=== PATIENT | female | born 1960 | race Caucasian/White ===

== ENCOUNTER → 2018-03-04 | Outpatient (CLI) | payer OTHER ==
[~2018-03-04] MED LIST: ADULT LOW DOSE81 MG PO; CALCIUM 500 +1 EAC5; K-DUR 20 MEQ T20 MEQ PO; LEVOTHYROXIN0.025 MG
== END ==
LOC: M.CT 09:12
DX: Z13.6 Encounter for screening for cardiovascular disorders (principal)

== ENCOUNTER 2019-02-11 15:54 | Emergency (ER) | payer OTHER ==
[~2019-02-11] VITALS: Ht 160 cm; Wt 70.3 kg
[~2019-02-11 15:54] MED LIST changes: -LEVOTHYROXIN0.025 MG; +SYNTHROID50 MCG PO
[2019-02-11] MEDS ORDERED: METOPROLOL SUCC50 MG PO (16:04)
[2019-02-11] MEDS ORDERED: NORTRIPTYLINE H10 M2 PO (16:06)
[2019-02-11] MEDS ORDERED: SUDAFED 12 HOU120 MG PO (16:06)
[2019-02-11] MEDS ORDERED: ALLEGRA ALLERGY60 MG PO (16:06)
[2019-02-11] MEDS ORDERED: MAGNESIUM OXID200 MG PO (16:06)
[2019-02-11 16:27] LABS: URINE BILIRUBIN NEGATIVE (Negative); URINE BLOOD NEGATIVE (Negative); URINE CLARITY CLEAR; URINE COLOR STRAW; URINE GLUCOSE-RANDOM NEGATIVE (Negative); URINE KETONES NEGATIVE (Negative); URINE LEUKOCYTES-REFLEX NEGATIVE (Negative); URINE NITRITE-REFLEX NEGATIVE (Negative); URINE PROTEIN NEGATIVE (Negative); URINE UROBILINOGEN 0.2 E.U./dl (0.2-1.0)
[2019-02-11 16:32] LABS: ABSOLUTE EOSINOPHILS 0.1 thou/uL (0.0-0.7); ABSOLUTE LYMPHOCYTES 2.7 thou/uL (0.8-5.3); ABSOLUTE MONOCYTES 0.6 thou/uL (0.0-1.2); ABSOLUTE NEUTROPHILS 2.9 thou/uL (1.6-8.1); BASOPHILS 0.6 %; EOSINOPHILS 1.1 %; HEMATOCRIT 44.3 % (37.0-47.0); HEMOGLOBIN 15.2 gm/dL (12.0-15.0); LYMPHOCYTES 42.9 %; MCH 29.5 pg (26.0-34.0); MCHC 34.2 g/dL (28.0-37.0); MCV 86.3 fL (80.0-100.0); MPV 7.7 fl. (7.2-11.1); NUCLEATED RBCS 0 /100WBC; PLATELET COUNT* 309 thou/uL (150-400); POLYS 46.4 %; RBC 5.13 mil/uL (4.20-5.00); RDW-CV 13.1 % (10.5-14.5); WBC 6.3 thou/uL (4.0-11.0)
[2019-02-11 16:47] LABS: APTT 27.3 Seconds (25.0-31.3); INR 0.9; PROTIME 9.5 Seconds (9.20-11.50)
[2019-02-11 17:05] LABS: ANION GAP 10 mmol/L (7-16); BUN 11 mg/dL (7-18); CHLORIDE 103 mmol/L (98-107); CO2 29 mmol/L (21-32); CREATININE 1.1 mg/dL (0.6-1.3); GLUCOSE 126 mg/dL (70-99); POTASSIUM 3.2 mmol/L (3.5-5.1); SODIUM 142 mmol/L (136-145); TROPONIN-I LEVEL <0.06 ng/mL (<0.06)
[2019-02-11 17:17] LABS: ALKALINE PHOSPHATASE 82 U/L (46-116); NT-PRO BRAIN NAT PEPTIDE 115 pg/mL (<300); SGOT 23 U/L (15-37); SGPT 22 U/L (30-65); TOTAL BILIRUBIN 0.2 mg/dL (<0.1-1.0)
[2019-02-11 17:34] VITALS: BP 151/97
--- NOTE | 2019-02-12 15:12 | EKG ---
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 : 1960 Requested By: Srikanth Fitzpatrick Order Number: [id number] MD: Scott Bermeo Measurements Intervals [place] Rate: 87 P: 60 [place]: 125 QRS: 4 QRSD: 104 T: 33 QT: 367 QTc: 442 Interpretive Statements Sinus rhythm Borderline repolarization abnormality Baseline wander in lead(s) V6 Compared to ECG 10/17/2010 08:44:11 T-wave abnormality no longer present Possible ischemia no longer present Electronically Signed On 02-12-2019 15:12:06 CDT by Scott Bermeo [email or web address] <ELECTRONICALLY SIGNED> By: Scott Bermeo MD, FAC 02/12/19 1512 1603 1603 Scott Bermeo MD, [facility] /EPI
== END 2019-02-11 17:36 | disposition home or self-care (01) ==
LOC: M.ERS 15:54
PROVIDERS: Family Medicine
DX: I10 Essential (primary) hypertension (principal); Z88.8 Allergy status to other drugs, medicaments and biological substances

== ENCOUNTER 2019-02-14 08:05 | Emergency (ER) | payer OTHER ==
[~2019-02-14] VITALS: Ht 160 cm; Wt 70.3 kg
[~2019-02-14 08:05] MED LIST changes: +ALLEGRA ALLERGY60 MG PO; +MAGNESIUM OXID200 MG PO; +METOPROLOL SUCC50 MG PO; +NORTRIPTYLINE H10 M2 PO; +SUDAFED 12 HOU120 MG PO
[2019-02-14 09:03] LABS: ABSOLUTE LYMPHOCYTES 1.1 thou/uL (0.8-5.3); ABSOLUTE MONOCYTES 0.3 thou/uL (0.0-1.2); ABSOLUTE NEUTROPHILS 2.9 thou/uL (1.6-8.1); BASOPHILS 0.7 %; EOSINOPHILS 0.5 %; HEMATOCRIT 44.4 % (37.0-47.0); HEMOGLOBIN 15.4 gm/dL (12.0-15.0); LYMPHOCYTES 25.5 %; MCH 29.3 pg (26.0-34.0); MCHC 34.6 g/dL (28.0-37.0); MCV 84.6 fL (80.0-100.0); MONOCYTES 6.9 %; MPV 7.7 fl. (7.2-11.1); NUCLEATED RBCS 0 /100WBC; PLATELET COUNT* 291 thou/uL (150-400); POLYS 66.4 %; RBC 5.25 mil/uL (4.20-5.00); RDW-CV 12.5 % (10.5-14.5); WBC 4.4 thou/uL (4.0-11.0)
[2019-02-14 09:19] LABS: ALBUMIN 4.3 g/dL (3.4-5.0); ALKALINE PHOSPHATASE 88 U/L (46-116); ANION GAP 11 mmol/L (7-16); BUN 8 mg/dL (7-18); CALCIUM 9.1 mg/dL (8.5-10.1); CHLORIDE 102 mmol/L (98-107); CO2 28 mmol/L (21-32); CREATININE 0.9 mg/dL (0.6-1.3); GLUCOSE 117 mg/dL (70-99); POTASSIUM 3.7 mmol/L (3.5-5.1); SGOT 18 U/L (15-37); SGPT 21 U/L (30-65); SODIUM 141 mmol/L (136-145); TOTAL BILIRUBIN 0.4 mg/dL (<0.1-1.0); TOTAL PROTEIN 8.3 g/dL (6.4-8.2); TROPONIN-I LEVEL <0.06 ng/mL (<0.06)
--- NOTE | 2019-02-14 10:05 | EKG ---
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 : 1960 Requested By: Kendal Benito Order Number: [id number] MD: Leo Bah Measurements Intervals [place] Rate: 90 P: 60 [place]: 127 QRS: 2 QRSD: 95 T: 15 QT: 346 QTc: 424 Interpretive Statements Sinus rhythm Probable left atrial enlargement RSR' in V1 or V2, probably normal variant Borderline T abnormalities, anterior leads Baseline wander in lead(s) V6 Compared to ECG 02/11/2019 16:03:57 RSR' in V1 or V2 now present T-wave abnormality now present Electronically Signed On 02-14-2019 10:05:12 CDT by Leo Bah [email or web address] <ELECTRONICALLY SIGNED> By: Leo Bah MD, FACC 02/14/19 1005 8 8 Leo Bah MD, FAC /EPI
[2019-02-14] MEDS ORDERED: LISINOPRIL-HCT1 EAC2 PO (10:40)
[2019-02-14] MEDS ORDERED: DIAZEPAM2 MG PO (10:40)
[2019-02-14 10:54] VITALS: BP 115/75
== END 2019-02-14 10:54 | disposition home or self-care (01) ==
LOC: M.ERS 08:05
PROVIDERS: Personal Emergency Response Attendant
DX: I16.0 Hypertensive urgency (principal); R42 Dizziness and giddiness; E03.9 Hypothyroidism, unspecified; Z88.8 Allergy status to other drugs, medicaments and biological substances

== ENCOUNTER → 2019-03-10 | Outpatient (CLI) | payer OTHER ==
[~2019-03-10] MED LIST changes: +DIAZEPAM2 MG PO; +LISINOPRIL-HCT1 EAC2 PO
== END ==
LOC: M.MRI 07:02
DX: R42 Dizziness and giddiness (principal); G44.029 Chronic cluster headache, not intractable; Z88.8 Allergy status to other drugs, medicaments and biological substances